=== PATIENT | female | born 1975 | race Caucasian/White ===

== ENCOUNTER 2017-08-07 15:49 | Outpatient (CLI) | payer OTHER | END 2017-08-07 15:50 | disposition home or self-care (01) | LOC: BICMAMMO 15:49 | PROVIDERS: ATTEND Student in an Organized Health Care Education/Training Program | DX: Z12.31 Encounter for screening mammogram for malignant neoplasm of breast (principal) | CPT/HCPCS: 77063; 77067 ==

== ENCOUNTER 2017-10-15 12:04 | Outpatient (CLI) | payer OTHER ==
[2017-10-15 12:59] LABS: Hemoglobin 13.5 g/dL (12.0-16.0); Mean Corpuscular HGB CONC 34.5 g/dL (32.0-36.0); Mean Corpuscular Hemoglobin 31.3 pg (27.0-31.0); Mean Corpuscular Volume 90.8 fl (81.0-99.0); Mean Platelet Volume 7.2 fL (7.4-10.4); Platelet Count 400 thou/uL (130-400); RBC Distribution Width 11.6 % (11.5-14.5); White Blood Cell (WBC) Count 11.2 thou/uL (4.8-10.8)
== END 2017-10-15 12:05 | disposition home or self-care (01) ==
LOC: LABBT 12:04
PROVIDERS: ATTEND Student in an Organized Health Care Education/Training Program
DX: Z01.812 Encounter for preprocedural laboratory examination (principal); M79.604 Pain in right leg; N94.10 Unspecified dyspareunia
CPT/HCPCS: 85027; 86850; 86900; 86901

== ENCOUNTER 2017-10-16 08:27 | Day surgery (SDC) | payer OTHER ==
[2017-10-15 12:43] VITALS: BMI 26.2
--- NOTE | 2017-10-15 21:53 | HP ---
DATE OF SURGERY: 10/16/2017 PREOPERATIVE HISTORY AND PHYSICAL CHIEF COMPLAINT: Right lower quadrant pain and history of endometriosis. HISTORY OF PRESENT ILLNESS: This is a 42-year-old P3 with a history of laparoscopic hysterectomy sec ondary to pelvic pain and endometriosis for the last 2-1/2 months. The patient has been experiencing increasing right lower quadrant pain. Reports it is dull and heavy sensation, constant, unresponsiv e to nonsteroidal anti-inflammatory therapy. She has had a normal pelvic ultrasound with ovaries vis ualized. She reports her pain radiates to her right lower back and vaginal area. She has deep dyspa reunia in the right lower quadrant. OBSTETRIC HISTORY: G3, P3, x3. PAST SURGICAL HISTORY: [facility] for endometriosis, age 32. CURRENT MEDICATIONS: Topamax 15 mg p.o. b.i.d. GYNECOLOGIC HISTORY: No abnormal Paps, no STDs. PAST MEDICAL HISTORY: Denies. SOCIAL HISTORY: Negative x3. ALLERGIES: No known drug allergies. FAMILY HISTORY: Hyperlipidemia. REVIEW OF SYSTEMS: Negative except as noted in the HPI. PHYSICAL EXAMINATION: VITAL SIGNS: Blood pressure 118/74, weight is 131, pulse 101, BMI is 26, respirations 18. GENERAL: No acute distress. CARDIAC: Regular rate and rhythm. LUNGS: Clear to auscultation bilaterally. ABDOMEN: Soft, nontender, nondistended. EXTREMITIES: No edema, cyanosis, or clubbing. PELVIC: Deferred to OR. ASSESSMENT AND PLAN: This is a 42-year-old P3 with persistent right lower quadrant pain and history of endometriosis and status post total laparoscopic hysterectomy 10 years ago. Discussed further med ical management with continuous fashion oral contraceptive pills versus a diagnostic surgery and raul divya of ovary. The patient desired to proceed with more definitive surgery including removal of her r ight ovary. She understands that her left ovary will be retained unless she has significant endometr iosis burden, then would recommend bilateral salpingo-oophorectomy, and the patient is amenable to th is. We will plan to lyse adhesions as feasible, as well as resection of endo. Discussed risk of augusto jacqueline to include bleeding; infection; damage to surrounding structures including bowel, bladder, urete r, blood vessels, nerves; conversion to open procedure; risk of surgery in the future for any retaine d ovary. The patient understands and wishes to proceed. She will follow up with me in 2 weeks posto perative time.
[2017-10-16] MEDS ORDERED: Gabapentin 300 MG CAP ONE (09:01)
[2017-10-16] MEDS ORDERED: Famotidine/PF 20 mg/2ml Vial ONE ×2 (09:01→09:02)
[2017-10-16] MEDS ORDERED: CeleCOXIB 100 MG CAP ONE (09:02)
[2017-10-16] MEDS ORDERED: CEFAZOLIN/Water 2 GM/20 ML SYRINGE ONE (09:47)
[2017-10-16] MEDS ORDERED: Bupivacaine HCl 0.5%/Epinephrine 1:200,000/PF 30 ml Vial ONE (10:21)
[2017-10-16] MEDS ORDERED: Midazolam HCl 2 mg/2 ml Vial ONE (10:29)
[2017-10-16] MEDS ORDERED: Fentanyl 100 MCG/2 ML VIAL ONE ×4 (10:29→15:53)
[2017-10-16] MEDS ORDERED: HYDROmorphone 0.5 MG/0.5 ML SYRINGE ONE (10:30)
[2017-10-16] MEDS ORDERED: Promethazine HCl 25 MG/ML VIAL ONE (13:25)
[2017-10-16] MEDS ORDERED: HYDROcodone/Acetaminophen 5/325 mg Tablet ONE (14:42)
[2017-10-16] MEDS ORDERED: Dexamethasone 20 MG/5 ML VIAL ONE (16:13)
[2017-10-16] MEDS ORDERED: Ketorolac Tromethamine 30 MG/ML VIAL ONE (16:13)
[2017-10-16] MEDS ORDERED: Lidocaine 1% PF 5 ML VIAL ONE (16:13)
[2017-10-16] MEDS ORDERED: PROPOFOL 200 MG/20 ML VIAL ONE (16:13)
--- NOTE | 2017-10-17 14:20 | OP ---
DATE OF OPERATION: 10/16/2017 PREOPERATIVE DIAGNOSIS: Right lower quadrant pain. POSTOPERATIVE DIAGNOSES: 1. Right lower quadrant pain. 2. Right uterosacral endometriosis. ATTENDING SURGEON: Yane Pratt MD FINE HAIRER SURGEON: None. ANESTHESIA: General endotracheal. PROCEDURE: Robotic-assisted right salpingo-oophorectomy, left salpingectomy, resection of endometrio sis and peritoneal biopsies. PATHOLOGY: 1. Right fallopian tube and right ovary. 2. Left fallopian tube. 3. Left uterosacral ligament. 4. Right pelvic sidewall. 5. Posterior cul-de-sac biopsy. ESTIMATED BLOOD LOSS: 10 mL. INTRAVENOUS FLUIDS: 900 mL crystalloid. URINE OUTPUT: 200 mL of clear urine. FINDINGS: A small hemorrhagic right ovarian cyst appearing in right ovary, normal appearing bilatera l fallopian tubes. However, the fallopian tubes were adherent to the bilateral vaginal cuff. The le ft fallopian tube was adherent as well to some omentum on the left side. There was endometriosis pre sent on the right uterosacral as well as a cleft present in the posterior cul-de-sac and peritoneum c onsistent with scarring from prior. There was a small cleft as well in the anterior cul-de-sac immed iately medial to the adhesion of the fallopian tube to the vaginal cuff and bladder. There was no en dometriosis appearing lesions within these clots. There were some small (2:36) on the right pel marisela sidewall. The appendix was normal appearing as well as the upper abdomen. OPERATIVE TECHNIQUE: The patient was taken to the operating room where general anesthesia was obtain ed without difficulty. The patient was prepped and draped in a sterile fashion in the dorsal lithoto my position. A Das catheter was placed in the bladder. A sponge stick was placed in the vagina. Legs were placed in low lithotomy, attention was turned to the abdomen. A 0.5% Marcaine with epineph rine was infiltrated into the umbilicus and a 12-mm skin incision was made. Veress needle was passed into the abdomen noting an opening pressure of 2 mmHg. Pneumoperitoneum was obtained without diffic ulty. A 12-mm trocar was passed into the umbilical incision and confirmed placement with robotic cam era. Steep Trendelenburg was obtained, the right and left lower quadrant robotic trocars were placed under direct visualization after infiltrating with 0.5% Marcaine with epinephrine, right upper quadr ant 11-mm port was placed with an assist port under direct visualization after infiltrating with anes thetic. The robot was then docked. The right robotic arm contained the monopolar scissors and left robotic arm contained a fenestrated bipolar. Surgeon console took control. Initially, the pelvis wa s thoroughly evaluated. There was no severe endometriosis present. There was definitive black endom etriotic implants on the right uterosacral and two small pinpoint lesions on the right pelvic sidewal l as well as within the peritoneal defect in the posterior cul-de-sac, possibly consistent with endom etriosis. The ureter was noted bilaterally at the pelvic brim and the adhesions of the omentum to th e left fallopian tube and ovary were taken down carefully with the scissors. The left fallopian tube was then elevated once freed up from the adhesions to the omentum into the vaginal cuff and the meso salpinx was cauterized and transected and the fallopian tube was removed out of the abdomen. The rig ht ovary and fallopian tube were elevated and the adhesions to the vaginal cuff were taken down caref ully staying superficially to ensure no bladder injury and hemostasis was achieved. The ureters and skin noted at the infundibulopelvic ligament. The ovary on the right side was hugged and clamped. T he decision was made to remove this ovary as the patient has severe right-sided pain and the ovary ap peared to have hemorrhagic cyst, possibly consistent with endometriomas on it and once the IP had bee n cauterized, the IP was transected and the ovary was transected off the pelvic peritoneum and hemost asis was achieved. The ovary was placed in the posterior cul-de-sac. At this time, peritoneal biops y of the left uterosacral ligament was performed to rule out endometriosis in this area. There were a few small redder areas and some white thickening of the peritoneum, possibly consistent with scarri ng or chronic endometriosis. This was performed by tenting up on the peritoneum with the fenestrated and incising superficially with the scissors and hemostasis was achieved of this area. The peritone al biopsy was sent for pathology. The defect in the posterior cul-de-sac was then grasped superficia yasmine and dissected off. The peritoneum was dissected out of the defect. Hemostasis was achieved. Th is was sent for pathology as well. The endometriotic implant was grasped superficially and dissected off of the ligament and the underlying retroperitoneum very carefully. The ureter was noted and dis section of the retroperitoneum allowed the ureter to be in direct visualization during this critical part of the dissection and continue vermiculation throughout the case under direct visualization. Th e right pelvic sidewall was included and peritoneal dissection of the right uterosacral endometriosis to completely resect the potential areas of endometriosis as this also appeared to have a small pinp oint red areas and some white thickening of the peritoneum. This pelvic sidewall peritoneum was take n from the level of the ureter to the uterosacral and to the right ovarian fossa. Hemostasis was ach ieved and again the ureter was under direct visualization during this dissection. Irrigation of thes e areas was performed and hemostasis was noted. At this time, the defect in the peritoneum on the po sterior cul-de-sac was reapproximated and the scissors were traded out for the needle race car driver and this was closed with a 2-0 Vicryl in a running fashion. There was no evidence of endometriosis on the re ctum or on any of the other structures. The appendix was normal appearing. This was documented on t he video of the surgery. Low pressure check was performed and Interceed was then placed over the rig ht pelvic sidewall dissection and the posterior cul-de-sac plication. Low pressure check was perform ed and hemostasis was noted to be excellent. All instruments were removed out of the abdomen and pne umoperitoneum was released. The robot was then docked. The fascia of the umbilical port was closed with 0 Vicryl in a [id number] fashion. The skin was closed with 4-0 Monocryl in a subcuticular fashion. Dermabond was applied. The sponge stick was removed out of the vagina and the Das cathet er was removed out of the bladder. The patient tolerated procedure well. Sponge, lap and needle cou nts were correct x2. The patient was taken to recovery in stable condition.
== END 2017-10-16 16:10 | disposition home or self-care (01) ==
LOC: SDC 08:27
PROVIDERS: ATTEND Student in an Organized Health Care Education/Training Program
PROC: 0UB74ZZ Excision of Bilateral Fallopian Tubes, Percutaneous Endoscopic Approach (ICD-10-PCS; principal; 2017-10-16)
PROC: 0UB44ZX Excision of Uterine Supporting Structure, Percutaneous Endoscopic Approach, Diagnostic (ICD-10-PCS; principal; 2017-10-16)
PROC: 0UB04ZZ Excision of Right Ovary, Percutaneous Endoscopic Approach (ICD-10-PCS; principal; 2017-10-16)
DX: N83.11 Corpus luteum cyst of right ovary (principal); N83.01 Follicular cyst of right ovary; Z88.5 Allergy status to narcotic agent; Z90.710 Acquired absence of both cervix and uterus; Z79.899 Other long term (current) drug therapy
CPT/HCPCS: 88305; 88307; 96374; 96375; J0670; J1100; J1170; J1885; J2001; J2250; J2550; J2704; J3010; S0028

== ENCOUNTER 2018-09-09 22:22 | Emergency (ER) | payer OTHER ==
[2018-09-09] MEDS ORDERED: Ketorolac Tromethamine 30 MG/ML VIAL ONE (22:47)
[2018-09-09 22:49] LABS: Bilirubin Negative (Negative); Blood, Urine Moderate (Negative); Clarity Clear (Clear); Glucose, Urine (Dipstick) Negative (Negative); Leukocyte Negative (Negative); Nitrite Negative (Negative); Pregnancy Test - Urine (BHCG) Negative (Negative); Protein, Urine (Dipstick) Negative (Neg-Trace); Specific Gravity, Urine 1.015 (1.005-1.030); Urobilinogen 0.2 mg/dL (0.2-1.0); pH, Urine 5.5 (5.0-9.0)
[2018-09-09 22:50] LABS: Pregu Control Background? CLEAR/WHITE (CLR/WHITE); Pregu Control Bar Appear? YES (CONTROL BAR); Specific Gravity 1.015 (1.002-1.036)
[2018-09-09 22:55] LABS: Bacteria/HPF Rare-Few HPF (None Seen); Hyaline Casts/LPF 0-3 HYALINE CAST LPF (0-3 Hyaline); Squamous Epithelial 0-3 HPF (0-3); WBC/HPF 0-3 HPF (0-3)
[2018-09-09 23:16] LABS: #Basophils 0.1 thou/uL (0.0-0.2); #Eosinphils 0.1 thou/uL (0.0-0.7); #Lymphocytes 2.3 thou/uL (1.20-3.40); #Monocytes 0.6 thou/uL (0.11-0.59); #Neutrophils 4.8 thou/uL (1.40-6.50); %Basophils 1.3 % (0.0-1.0); %Eosinophils 1.5 % (0.0-10.0); %Lymphocytes 29.1 % (21.0-51.0); %Monocytes 7.9 % (0.0-10.0); %Neutrophils 60.3 % (42.0-75.0); Hemoglobin 13.5 g/dL (12.0-16.0); Mean Corpuscular HGB CONC 33.4 g/dL (32.0-36.0); Mean Corpuscular Hemoglobin 29.3 pg (27.0-31.0); Mean Corpuscular Volume 87.9 fL (78.0-98.0); Mean Platelet Volume 7.5 fL (7.4-10.4); Platelet Count 296 thou/uL (130-400); RBC Distribution Width 12.2 % (11.5-14.5); Red Blood Cell (RBC) Count 4.62 mill/uL (4.20-5.40); White Blood Cell (WBC) Count 7.9 thou/uL (4.8-10.8)
--- NOTE | 2018-09-09 23:31 | CT ---
CT ABDOMEN AND PELVIS NONCONTRAST: History: Right flank pain. Comparison: 07-25-17 FINDINGS: Each renal collecting system, ureter, and urinary bladder is decompressed without stone apparent. Lack of contrast limits evaluation for other abnormalities. No evidence of bowel obstruction or infla mmation. Scattered diverticula arise from the colon without adjacent inflammation. IMPRESSION: 1. No CT evidence of urinary tract obstruction or calcification. 2. Mild diverticulosis. No evidence of diverticulitis. POS: ARLETTE
[2018-09-09 23:37] LABS: ALT (SGPT) 19 U/L (8-55); AST (SGOT) 17 U/L (5-34); Albumin 4.2 g/dL (3.5-5.0); Alkaline Phosphatase 97 U/L (40-150); Anion Gap 14 mmol/L (10-20); BUN (Urea Nitrogen) 11 mg/dL (7.0-18.7); Bilirubin, Total 0.2 mg/dL (0.2-1.2); Calc. Creatinine Clearance 0 mL/min (70-130); Calcium 9.4 mg/dL (7.8-10.44); Carbon Dioxide 17 mmol/L (22-29); Chloride 110 mmol/L (98-107); Estimated GFR-MDRD 64; Globulin 3.5 g/dL (2.4-3.5); Glucose 105 mg/dL (70-105); Lipase 28 U/L (8-78); Potassium 3.5 mmol/L (3.5-5.1); Protein, Total 7.7 g/dL (6.0-8.3); Sodium 137 mmol/L (136-145)
== END 2018-09-10 00:18 | disposition home or self-care (01) ==
LOC: SCSER 22:22
DX: M54.5 Low back pain (principal); B34.9 Viral infection, unspecified; F41.9 Anxiety disorder, unspecified
CPT/HCPCS: 74176; 80053; 81003; 81015; 81025; 83690; 85025; 87804; 96360; 96372; J1885

== ENCOUNTER 2020-08-17 13:44 | Outpatient (CLI) | payer BC ==
--- NOTE | 2020-08-17 14:33 | ULT ---
EXAM: US Breast Limited Lt PROVIDED CLINICAL HISTORY: Left breast palpable abnormality COMPARISON: Concurrently performed mammogram FINDINGS: Limited sonographic interrogation was performed of the left breast in the region of palpable concern at 2:00. The sonographic appearance of the breast tissue in this region is normal. IMPRESSION: No sonographic abnormality is evident in the region of clinical concern. Negative imaging findings sh ould not preclude further evaluation of a clinically suspicious finding. Patient is referred back to her clinician.
--- NOTE | 2020-08-18 07:01 | MMO ---
Bilateral MAMMO Bilat Diag [facility]. CLINICAL HISTORY: Patient is 45 years old and is seen for diagnostic exam. The patient has no family history of breast cancer. The patient has no personal history of cancer. VIEWS: The views performed were: bilateral craniocaudal with tomosynthesis; bilateral mediolateral oblique with tomosynthesis; and bilateral mediolateral with tomosynthesis. FILMS COMPARED: The present examination has been compared to prior imaging studies performed at [facility] on 08/07/2017 and 08/17/2020. This study has been interpreted with the assistance of computer-aided detection. MAMMOGRAM FINDINGS: The breasts are heterogeneously dense, which could obscure a lesion on mammography. Finding 1: There are stable benign appearing calcifications seen in the left breast. Finding 2: There are no mammographic or sonographic abnormalities in the area of palpable concern. The patient is referred back to her clinician. Negative imaging findings should not preclude biopsy if clinical findings are suspicious. There are no suspicious masses, suspicious calcifications, or new areas of architectural distortion. IMPRESSION: FINDING 2: THERE ARE NO MAMMOGRAPHIC ABNORMALITIES IN THE AREA OF PALPABLE CONCERN. THE PATIENT IS REFERRED BACK TO HER CLINICIAN. NEGATIVE IMAGING FINDINGS SHOULD NOT PRECLUDE BIOPSY IF CLINICAL FINDINGS ARE SUSPICIOUS. THE RESULTS OF THIS EXAM WERE SENT TO THE PATIENT. ACR BI-RADS Category 2 - Benign finding MAMMOGRAPHY NOTE: 1. A negative mammogram report should not delay a biopsy if a dominant of clinically suspicious mass is present. 2. Approximately 10% to 15% of breast cancers are not detected by mammography. 3. Adenosis and dense breasts may obscure an underlying neoplasm. Reported by: CARL DE OLIVEIRA MD Electonically Signed: [id number]
== END 2020-08-17 13:45 | disposition home or self-care (01) ==
LOC: BICMAMMO 13:44
PROVIDERS: ATTEND Internal Medicine
DX: N63.0 Unspecified lump in unspecified breast (principal)
CPT/HCPCS: 77066; G0279

== ENCOUNTER 2022-07-21 10:31 | Outpatient (CLI) | payer BC ==
[2022-07-21 11:11] LABS: Bilirubin Neg (Negative); Blood, Urine Negative (Negative); Clarity Clear (Clear); Glucose, Urine (Dipstick) Normal (Negative); Ketone, Urine Negative (Negative); Leukocyte Negative (Negative); Nitrite Negative (Negative); Protein, Urine (Dipstick) Negative (Neg-Trace); Urobilinogen Normal mg/dL (Less than 2)
[2022-07-21 11:27] LABS: Hemoglobin 13.9 g/dL (12.0-15.5); Mean Corpuscular HGB CONC 33.4 g/dL (32.0-36.0); Mean Corpuscular Hemoglobin 30.3 pg (27.0-33.0); Mean Corpuscular Volume 90.6 fl (81.6-98.3); Mean Platelet Volume 10.5 fl (7.4-10.4); Platelet Count 468 10x3/uL (150-450); RBC Distribution Width 12.6 % (11.5-14.5); Red Blood Cell (RBC) Count 4.59 10x6/uL (3.90-5.03); White Blood Cell (WBC) Count 8.6 10x3/uL (3.5-10.5)
[2022-07-21 11:43] LABS: Anion Gap 15 mmol/L (10-20); BUN (Urea Nitrogen) 14 mg/dL (7.0-18.7); Calc. Creatinine Clearance 0 mL/min (70-130); Calcium 10.4 mg/dL (7.8-10.44); Carbon Dioxide 26 mmol/L (22-29); Chloride 101 mmol/L (98-107); Estimated GFR 87; Glucose 76 mg/dL (70-105); Sodium 138 mmol/L (136-145)
[2022-07-21 11:53] LABS: Bacteria/HPF Rare-Few HPF (None Seen); Mucous/LPF 1+ LPF (<2+); RBC/HPF 0-3 HPF (0-3); WBC/HPF 0-3 HPF (0-3)
[2022-07-21 11:56] LABS: INR-International Normal Ratio 0.9; PTT 28.2 sec (22.0-33.0); Prothrombin Time 9.9 sec (9.5-12.1)
== END 2022-07-21 10:32 | disposition home or self-care (01) ==
LOC: LABBT 10:31
PROVIDERS: ATTEND Urology
DX: Z01.818 Encounter for other preprocedural examination (principal); N13.2 Hydronephrosis with renal and ureteral calculous obstruction
CPT/HCPCS: 80048; 81001; 85027; 85610; 85730; 87086; 93005; 93010

== ENCOUNTER 2022-07-28 09:13 | Day surgery (SDC) | payer BC ==
[2022-07-26 10:42] VITALS: BMI 25.2
[2022-07-28] MEDS ORDERED: Fentanyl 100 MCG/2 ML VIAL ONE (12:19)
[2022-07-28] MEDS ORDERED: Dexmedetomidine 200 MCG/2 ML VIAL ONE (12:28)
[2022-07-28] MEDS ORDERED: Levofloxacin 500 mg/D5W 100 ml Premix Bag ONE (12:43)
[2022-07-28] MEDS ORDERED: PROPOFOL 200 MG/20 ML VIAL ONE (12:50)
[2022-07-28] MEDS ORDERED: Ondansetron PF 4 MG/2 ML Vial ONE (12:50)
[2022-07-28] MEDS ORDERED: ePHEDrine 50 MG/ML VIAL ONE (12:50)
[2022-07-28] MEDS ORDERED: Lidocaine 1% PF 5 ML VIAL ONE (12:50)
[2022-07-28] MEDS ORDERED: Ketorolac Tromethamine 30 MG/ML VIAL ONE (12:50)
[2022-07-28] MEDS ORDERED: Iopamidol 30 ML ONE (13:50)
[2022-07-28] MEDS ORDERED: Phenazopyridine HCl 100 MG TAB ONE (14:24)
[2022-07-28] MEDS ORDERED: Oxybutynin 5 MG TAB ONE (14:24)
== END 2022-07-28 15:24 | disposition home or self-care (01) ==
LOC: SDC 09:13
PROVIDERS: ATTEND Urology
PROC: 0T778DZ Dilation of Left Ureter with Intraluminal Device, Via Natural or Artificial Opening Endoscopic (ICD-10-PCS; principal; 2022-07-28)
PROC: 0TC78ZZ Extirpation of Matter from Left Ureter, Via Natural or Artificial Opening Endoscopic (ICD-10-PCS; principal; 2022-07-28)
DX: N20.1 Calculus of ureter (principal); N13.5 Crossing vessel and stricture of ureter without hydronephrosis; Z79.2 Long term (current) use of antibiotics; Z79.899 Other long term (current) drug therapy; Z88.5 Allergy status to narcotic agent
CPT/HCPCS: 82365; 88300; C2617; J1885; J1956; J2405; J2704; J3010; J3490; Q9967